=== PATIENT | male | born 1950 | race Caucasian/White ===

== ENCOUNTER 2018-03-28 14:45 | Inpatient (IN) | payer MEDICARE ==
[2018-03-28] MEDS ORDERED: ACETAMINOPHEN 500 MG TAB PO ONE (15:11)
--- NOTE | 2018-03-28 15:19 | RAD ---
EXAM DESCRIPTION: Chest,1 View CLINICAL HISTORY: cough, dyspnea COMPARISON: Chest radiograph dated March 28, 2013 FINDINGS: Single upright portable AP view of the chest. Mild calcific atherosclerosis and tortuosity noted of the thoracic aorta. Cardiomediastinal silhouette and pulmonary vascularity are within normal limits. Hyperinflated lung volume, compatible with COPD. Subtle hazy opacities in the bilateral lower lung zones, right greater than left, compatible with atelectasis versus early pulmonary infiltrate. No significant pleural effusion. No pneumothorax. ACDF construct is present. IMPRESSION: 1. Subtle hazy opacities in the bilateral lower lung zones, right greater than left, compatible with atelectasis versus early pulmonary infiltrate. Please correlate clinically. 2. COPD. 3. Other findings as above. Electronically signed by: Brian Estrada MD 03/28/2018 3:18 PM CDT
--- NOTE | 2018-03-28 15:38 | ED.PDOC ---
History of Present Illness - General Chief Complaint: Respiratory Problem Stated Complaint: cough,fever Time Seen by Provider: 03/28/18 15:18 Source: patient Exam Limitations: no limitations - History of Present Illness Initial Comments: THIS PATIENT COMES TO THE ED BY AMBULANCE WITH A FOUR DAY HISTORY OF FEVER AND A COUGH. HE HAS A HX OF COPD Timing/Duration: constant, other - FOUR DAYS Severity: moderate Possible Cause: occasional episodes Improving Factors: nothing Worsening Factors: movement Associated Symptoms: cough, fever, wheezing Respiratory Risk Factors: no cause identified Allergies/Adverse Reactions: Allergies NO KNOWN ALLERGY Allergy (Unverified 03/28/13 11:31) Home Medications: Ambulatory Orders Amlodipine Besylate [Amlodipine Besylate] 5 mg PO DAILY 03/28/18 Lovastatin [Lovastatin] 10 mg PO DAILY 03/28/18 Review of Systems - Review of Systems Constitutional: States: chills, fever, weakness EENTM: States: no symptoms reported Respiratory: States: cough, short of breath, wheezing Cardiology: States: no symptoms reported Gastrointestinal/Abdominal: States: no symptoms reported Genitourinary: States: no symptoms reported Musculoskeletal: States: no symptoms reported Skin: States: no symptoms reported Neurological: States: no symptoms reported Endocrine: States: no symptoms reported Hematologic/Lymphatic: States: no symptoms reported All other Systems: Reviewed and Negative, No Change from Baseline Past Medical History (General) - Patient Medical History Hx Stroke: No Hx of COPD: Yes Hx Congestive Heart Failure: No Hx Hypertension: Yes Hx Diabetes: No - Vaccination History Hx Influenza Vaccination: Yes Hx Pneumococcal Vaccination: Yes - Social History Hx Tobacco Use: No Family Medical History - Family History Father Family History: Unknown Living Status: Unknown Physical Exam - Physical Exam General Appearance: Alert, Restless, Well Developed, Well Groomed Eyes, Ears, Nose, Throat Exam: PERRL/EOMI, normal ENT inspection, TMs normal, pharynx normal Neck: non-tender, full range of motion, supple, normal inspection Respiratory: chest non-tender, rhonchi, wheezing Cardiovascular/Chest: no edema, no gallop, tachycardia Peripheral Pulses: radial,right: 2+, radial,left: 2+ Gastrointestinal/Abdominal: normal bowel sounds, non tender, soft, no organomegaly, no pulsatile mass Rectal Exam: deferred Extremity: normal range of motion Neurologic: no motor/sensory deficits, alert, normal mood/affect, oriented x 3 Skin Exam: normal color, warm/dry Lymphatic: no adenopathy Progress - Results/Orders Results/Orders: THE CXR IS CONSISTENT WITH BIBASILAR PNEUMONIA, MORE ON THE RIGHT. CBC IS PENDING: CMP GLUCOSE 172 LACTATE I.3 Departure - Departure Clinical Impression: Pneumonia Qualifiers: Pneumonia type: due to unspecified organism Laterality: bilateral Lung location : lower lobe of lung Qualified Code(s): J18.9 - Pneumonia, unspecified organism Time of Disposition: 16:06 Disposition: Admit Patient Referrals: Moustapha Sanchez MD [Primary Care Provider] - 1-2 Weeks Home Medications: Ambulatory Orders Amlodipine Besylate [Amlodipine Besylate] 5 mg PO DAILY 03/28/18 Lovastatin [Lovastatin] 10 mg PO DAILY 03/28/18 Decision To Admit - Decistion To Admit Decision to Admit Date: 03/28/18 Decision to Admit Time: 16:05 - CASE DISCUSSED WITH AVELINO HARRIS RN
[2018-03-28] MEDS ORDERED: cefTRIAXone SODIUM 1 GM in SODIUM CHL 0.9% 50ML MIN-BAG+ 50 ML IVPB ONE (16:07)
[2018-03-28] MEDS ORDERED: AZITHROMYCIN IV 500 MG in SODIUM CHLORIDE 0.9% 250ML 250 ML IVPB ONE (16:07)
[2018-03-28] MEDS ORDERED: SODIUM CHL 0.9% 50ML MIN-BAG+ 50 ML IVPB ONE (16:12)
[2018-03-28] MEDS ORDERED: cefTRIAXone SODIUM 1 GM VIAL ONE (16:12)
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
[2018-03-28] MEDS ORDERED: SODIUM CHLORIDE 0.9% 250ML 250 ML ONE (16:56)
[2018-03-28] MEDS ORDERED: AZITHROMYCIN IV 500 MG VIAL IVPB ONE (16:56)
[2018-03-28] MEDS ORDERED: SODIUM CHLORIDE 0.9% (FLUSH) 10 ML SYG IV PRN (17:41)
[2018-03-28] MEDS ORDERED: ALBUTEROL SULFATE 2.5 MG/3 ML VIAL NEB PRN (17:41)
[2018-03-28] MEDS ORDERED: PANTOPRAZOLE SODIUM IV 40 MG VIAL IV SCH (18:00)
[2018-03-28] MEDS ORDERED: ENOXAPARIN SODIUM 40 MG/0.4 ML SYG SUBCU SCH (18:00)
[2018-03-28] MEDS ORDERED: LEVALBUTEROL NEBS 1.25 MG/3 ML VIAL NEB PRN (18:56)
[2018-03-28] MEDS ORDERED: KCL 20MEQ/0.45% NS 1,000 ML IVS ONE (19:30)
[2018-03-28] MEDS ORDERED: IPRATROPIUM/ALBUTEROL 3 ML VIAL INH SCH (20:00)
[2018-03-28] MEDS: IV SET AND CAP CHANGE INJ INJ SCH (20:47)
[2018-03-28] MEDS: PREGABALIN 75 MG CAP PO SCH (20:49)
[2018-03-28] MEDS: guaiFENesin ER TAB 600 MG TAB PO SCH (20:49)
[2018-03-28] MEDS: SODIUM CHLORIDE 0.9% (FLUSH) 10 ML SYG IV SCH (20:49)
[2018-03-28] MEDS ORDERED: LOVASTATIN 10 MG PO SCH (21:00)
[2018-03-28] MEDS: LEVALBUTEROL NEBS 1.25 MG/3 ML VIAL NEB SCH (21:15)
--- NOTE | 2018-03-29 06:54 | RAD ---
EXAM DESCRIPTION: Chest,2 Views CLINICAL HISTORY: Pneumonia COMPARISON: 03/28/2018 FINDINGS: Frontal and lateral views of the chest. The cardiomediastinal silhouette has normal size and contour. Patchy bibasilar opacities are stable. Hyperinflation suggesting obstructive lung disease. No pleural effusion or pneumothorax. Degenerative change of the spine. Leads overlie the chest. Upper abdominal soft tissues are unremarkable. IMPRESSION: 1. Patchy bibasilar opacities are stable. This could be related to atelectasis or developing bronchopneumonia. Electronically signed by: Sergio Amor 03/29/2018 6:52 AM CDT
[2018-03-29] MEDS: LEVALBUTEROL NEBS 1.25 MG/3 ML VIAL NEB SCH ×4 (07:10→20:13)
[2018-03-29] MEDS: VALSARTAN 80 MG TAB PO SCH (08:46)
[2018-03-29] MEDS: SODIUM CHLORIDE 0.9% (FLUSH) 10 ML SYG IV SCH ×2 (08:47→20:56)
[2018-03-29] MEDS: amLODIPine BESYLATE 5 MG TAB PO SCH (08:47)
[2018-03-29] MEDS: guaiFENesin ER TAB 600 MG TAB PO SCH ×2 (08:47→20:56)
[2018-03-29] MEDS: PREGABALIN 75 MG CAP PO SCH ×2 (08:47→20:56)
[2018-03-29] MEDS: hydroCHLOROthiazide 12.5 MG CAP PO SCH (08:47)
[2018-03-29] MEDS ORDERED: NON-FORMULARY MEDICATION 1 EA MIS (Valsartan-Hydrochlorothiazide [Valsartan/Hydrochlorothi PO SCH (09:00)
[2018-03-29] MEDS: BUDESONIDE/FORMOTEROL 160/4.5 60 PUFF/6 GM INH INH SCH ×2 (12:06→20:13)
[2018-03-29] MEDS ORDERED: SODIUM CHLORIDE 0.9% 250ML 250 ML ONE (15:20)
[2018-03-29] MEDS ORDERED: cefTRIAXone SODIUM 1 GM VIAL ONE (15:21)
[2018-03-29] MEDS ORDERED: SODIUM CHL 0.9% 50ML MIN-BAG+ 50 ML IVPB ONE (15:21)
[2018-03-29] MEDS ORDERED: AZITHROMYCIN IV 500 MG VIAL IVPB ONE (15:22)
[2018-03-29] MEDS: cefTRIAXone SODIUM 1 GM in SODIUM CHL 0.9% 50ML MIN-BAG+ 50 ML IVPB SCH (15:24)
[2018-03-29] MEDS: AZITHROMYCIN IV 500 MG in SODIUM CHLORIDE 0.9% 250ML 250 ML IVPB SCH (16:05)
[2018-03-29] MEDS: PANTOPRAZOLE SODIUM TAB 40 MG PO SCH (16:07)
[2018-03-29] MEDS: methylPREDNISolone SODIUM SUC 125 MG/2 ML VIAL IV SCH (18:35)
[2018-03-29] MEDS ORDERED: MAGNESIUM SULFATE PREMIX 2GM 2 GM in PREMIX BAG 1 BAG IVPB ONE (19:17)
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
[2018-03-29] MEDS ORDERED: MAGNESIUM SULFATE PREMIX 2GM 50 ML IVPB ONE (19:51)
[2018-03-29] MEDS: ENOXAPARIN SODIUM 40 MG/0.4 ML SYG SUBCU SCH (20:56)
[2018-03-29] MEDS: PRAVASTATIN SODIUM 20 MG TAB PO SCH (20:56)
[2018-03-30] MEDS: methylPREDNISolone SODIUM SUC 125 MG/2 ML VIAL IV SCH ×4 (00:11→17:39)
[2018-03-30] MEDS: PANTOPRAZOLE SODIUM TAB 40 MG PO SCH (06:12)
[2018-03-30] MEDS: LEVALBUTEROL NEBS 1.25 MG/3 ML VIAL NEB SCH ×4 (07:33→20:50)
[2018-03-30] MEDS: BUDESONIDE/FORMOTEROL 160/4.5 60 PUFF/6 GM INH INH SCH ×2 (07:33→20:55)
[2018-03-30] MEDS: guaiFENesin ER TAB 600 MG TAB PO SCH ×2 (08:19→20:55)
[2018-03-30] MEDS: hydroCHLOROthiazide 12.5 MG CAP PO SCH (08:19)
[2018-03-30] MEDS: PREGABALIN 75 MG CAP PO SCH ×2 (08:19→20:55)
[2018-03-30] MEDS: VALSARTAN 80 MG TAB PO SCH (08:19)
[2018-03-30] MEDS: SODIUM CHLORIDE 0.9% (FLUSH) 10 ML SYG IV SCH ×2 (08:20→20:56)
[2018-03-30] MEDS: amLODIPine BESYLATE 5 MG TAB PO SCH (08:20)
[2018-03-30] MEDS ORDERED: MAGNESIUM SULFATE PREMIX 2GM 2 GM in PREMIX BAG 1 BAG IVPB ONE (14:27)
[2018-03-30] MEDS ORDERED: MAGNESIUM SULFATE PREMIX 2GM 50 ML IVPB ONE (15:41)
[2018-03-30] MEDS ORDERED: SODIUM CHLORIDE 0.9% 250ML 250 ML ONE (16:05)
[2018-03-30] MEDS ORDERED: cefTRIAXone SODIUM 1 GM VIAL ONE (16:05)
[2018-03-30] MEDS ORDERED: SODIUM CHL 0.9% 50ML MIN-BAG+ 50 ML IVPB ONE (16:05)
[2018-03-30] MEDS ORDERED: AZITHROMYCIN IV 500 MG VIAL IVPB ONE (16:05)
[2018-03-30] MEDS: cefTRIAXone SODIUM 1 GM in SODIUM CHL 0.9% 50ML MIN-BAG+ 50 ML IVPB SCH (16:14)
[2018-03-30] MEDS: KCL 20MEQ/D5 1/2NS 1,000 ML IVS PRN (17:26)
[2018-03-30] MEDS: AZITHROMYCIN IV 500 MG in SODIUM CHLORIDE 0.9% 250ML 250 ML IVPB SCH (17:27)
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
[2018-03-30] MEDS: ENOXAPARIN SODIUM 40 MG/0.4 ML SYG SUBCU SCH (20:55)
[2018-03-30] MEDS: PRAVASTATIN SODIUM 20 MG TAB PO SCH (20:56)
[2018-03-31] MEDS: methylPREDNISolone SODIUM SUC 125 MG/2 ML VIAL IV SCH ×2 (00:18→05:36)
[2018-03-31] MEDS: PANTOPRAZOLE SODIUM TAB 40 MG PO SCH (06:11)
[2018-03-31] MEDS: BUDESONIDE/FORMOTEROL 160/4.5 60 PUFF/6 GM INH INH SCH ×4 (08:01→21:00)
[2018-03-31] MEDS: KCL 20MEQ/D5 1/2NS 1,000 ML IVS PRN (08:13)
[2018-03-31] MEDS: hydroCHLOROthiazide 12.5 MG CAP PO SCH (08:52)
[2018-03-31] MEDS: PREGABALIN 75 MG CAP PO SCH ×2 (08:52→20:37)
[2018-03-31] MEDS: guaiFENesin ER TAB 600 MG TAB PO SCH ×2 (08:52→20:37)
[2018-03-31] MEDS: VALSARTAN 80 MG TAB PO SCH (08:52)
[2018-03-31] MEDS: amLODIPine BESYLATE 5 MG TAB PO SCH (08:52)
[2018-03-31] MEDS: SODIUM CHLORIDE 0.9% (FLUSH) 10 ML SYG IV SCH ×2 (08:52→20:38)
--- NOTE | 2018-03-31 10:10 | RAD ---
EXAM: Two view chest. INDICATION: Pneumonia. COMPARISON: Chest x-ray: 03/29/2018. FINDINGS: The lungs are emphysematous. There are bibasilar interstitial opacities, likely representing atelectasis. There is no focal consolidation. The heart is normal in size. There is no pneumothorax or pleural effusion. Thoracic spondylosis is noted IMPRESSION: Emphysematous appearing lungs Electronically signed by: Joshua Saul MD 03/31/2018 10:09 AM CDT Workstation: [id number]
[2018-03-31] MEDS: LEVALBUTEROL NEBS 1.25 MG/3 ML VIAL NEB SCH ×4 (10:22→20:35)
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
[2018-03-31] MEDS: methylPREDNISolone SODIUM SUC 40 MG/ML VIAL IV SCH ×2 (14:21→17:33)
[2018-03-31] MEDS ORDERED: cefTRIAXone SODIUM 1 GM VIAL ONE (14:49)
[2018-03-31] MEDS ORDERED: SODIUM CHL 0.9% 50ML MIN-BAG+ 50 ML IVPB ONE (14:49)
[2018-03-31] MEDS: cefTRIAXone SODIUM 1 GM in SODIUM CHL 0.9% 50ML MIN-BAG+ 50 ML IVPB SCH (14:53)
[2018-03-31] MEDS ORDERED: SODIUM CHLORIDE 0.9% 250ML 250 ML ONE (15:47)
[2018-03-31] MEDS ORDERED: AZITHROMYCIN IV 500 MG VIAL IVPB ONE (15:47)
[2018-03-31] MEDS: AZITHROMYCIN IV 500 MG in SODIUM CHLORIDE 0.9% 250ML 250 ML IVPB SCH (15:53)
[2018-03-31] MEDS: IV SET AND CAP CHANGE INJ INJ SCH (17:27)
[2018-03-31] MEDS: ENOXAPARIN SODIUM 40 MG/0.4 ML SYG SUBCU SCH (20:35)
[2018-03-31] MEDS: PRAVASTATIN SODIUM 20 MG TAB PO SCH (20:36)
[2018-04-01] MEDS: PANTOPRAZOLE SODIUM TAB 40 MG PO SCH (05:57)
[2018-04-01] MEDS: guaiFENesin ER TAB 600 MG TAB PO SCH (08:38)
[2018-04-01] MEDS: VALSARTAN 80 MG TAB PO SCH (08:38)
[2018-04-01] MEDS: hydroCHLOROthiazide 12.5 MG CAP PO SCH (08:38)
[2018-04-01] MEDS: amLODIPine BESYLATE 5 MG TAB PO SCH (08:38)
[2018-04-01] MEDS: PREGABALIN 75 MG CAP PO SCH (08:38)
[2018-04-01] MEDS: SODIUM CHLORIDE 0.9% (FLUSH) 10 ML SYG IV SCH (08:39)
[2018-04-01] MEDS: BUDESONIDE/FORMOTEROL 160/4.5 60 PUFF/6 GM INH INH SCH (08:56)
[2018-04-01] MEDS: LEVALBUTEROL NEBS 1.25 MG/3 ML VIAL NEB SCH (08:56)
[2018-04-01] MEDS ORDERED: predniSONE 20 MG TAB PO SCH (09:00)
[2018-04-01 10:11] VITALS: BP 128/56; TEMP 96.6; O2SAT 95
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
[2018-04-01] MEDS ORDERED: AZITHROMYCIN 250 MG TAB PO SCH (15:00)
== END 2018-04-01 10:36 | disposition home or self-care (01) | DRG 871 ==
LOC: ER 14:45 → MS 16:18
PROVIDERS: ADMIT Nurse Practitioner Acute Care; ATTEND Nurse Practitioner
DX: A41.9 Sepsis, unspecified organism (principal); J18.9 Pneumonia, unspecified organism; J44.0 Chronic obstructive pulmonary disease with (acute) lower respiratory infection; J44.1 Chronic obstructive pulmonary disease with (acute) exacerbation; I10 Essential (primary) hypertension; N28.9 Disorder of kidney and ureter, unspecified; R73.9 Hyperglycemia, unspecified; R74.8 Abnormal levels of other serum enzymes; Z79.899 Other long term (current) drug therapy; E66.9 Obesity, unspecified; R09.02 Hypoxemia; T59.891S Toxic effect of other specified gases, fumes and vapors, accidental (unintentional), sequela; Z68.37 Body mass index [BMI] 37.0-37.9, adult

== ENCOUNTER → 2018-05-24 | Outpatient (CLI) | payer OTHER ==
--- NOTE | 2018-05-24 15:15 | US ---
EXAM DESCRIPTION: Abdomen,Limited CLINICAL HISTORY: ABDOMINAL DISTENSION COMPARISON: None Available. TECHNIQUE: Right upper quadrant ultrasound FINDINGS: Pancreas: Visualized portions of the pancreas are unremarkable. Bowel gas obscures some areas. Aorta/inferior vena cava: No aortic aneurysm. Normal inferior vena cava. Liver: The liver is homogeneous in texture with normal echogenicity of the hepatic parenchyma. No focal liver lesion or intrahepatic bile duct dilatation. No liver surface irregularity. Normal appearance of the portal vein and hepatic veins. Right lobe of the liver measures 19.2 cm which is increased. Gallbladder: Numerous shadowing stones are seen in the gallbladder. Gallbladder wall thickness measures 2.4 mm. Sonographic Jade sign is recorded as negative. Gallbladder does not appear overdistended. Common bile duct: Normal caliber measuring 6.0 mm. Right kidney: Renal length is 9.4 cm. Mildly increased renal cortical echogenicity. Correlate with renal function studies. Cortical thickness is mildly decreased at the upper and lower poles. No hydronephrosis is seen. No renal mass or shadowing calculus. Small cyst at the lower pole of the right kidney measures 1 cm. Small parapelvic cyst in the right kidney measures 1.3 cm. Question small calcification in the right kidney 4 mm. IMPRESSION: Gallstones without other changes to suggest acute cholecystitis. Elongated liver suggesting mild hepatomegaly. Electronically signed by: Fito Ritchie MD 05/24/2018 3:14 PM CDT
== END ==
LOC: RAD 13:11
PROVIDERS: ATTEND Nurse Practitioner Family
DX: R14.0 Abdominal distension (gaseous) (principal); K80.20 Calculus of gallbladder without cholecystitis without obstruction

== ENCOUNTER 2019-01-23 15:37 | Inpatient (IN) | payer OTHER ==
[2019-01-23] MEDS ORDERED: IPRATROPIUM/ALBUTEROL 3 ML VIAL NEB ONE (15:48)
--- NOTE | 2019-01-23 16:12 | RAD ---
EXAM DESCRIPTION: Chest,1 View CLINICAL HISTORY: 69 years Male, cough, sob COMPARISON: Radiographs of the chest dated 03/31/2018. TECHNIQUE: AP radiograph of the chest was obtained. FINDINGS: Trachea is midline.The cardiomediastinal silhouette is normal in size. The pulmonary vasculature is within normal limits. Airspace opacities are identified in the bilateral lower lobes.No evidence of pleural effusions. IMPRESSION: Airspace opacities in the bilateral lower lobes could represent atelectasis and/or pneumonia. Electronically signed by: Aaliyah Olsen MD 01/23/2019 4:08 PM [facility]
[2019-01-23] MEDS ORDERED: SODIUM CHLORIDE 0.9% 1000ML 1,000 ML IVS ONE ×3 (16:16→22:52)
[2019-01-23] MEDS ORDERED: AZITHROMYCIN IV 500 MG in SODIUM CHLORIDE 0.9% 250ML 250 ML IVPB ONE (16:42)
[2019-01-23] MEDS ORDERED: cefTRIAXone SODIUM 1 GM in SODIUM CHL 0.9% 50ML MIN-BAG+ 50 ML IVPB ONE (16:42)
[2019-01-23] MEDS ORDERED: methylPREDNISolone SODIUM SUC 125 MG/2 ML VIAL IV ONE (16:42)
[2019-01-23] MEDS ORDERED: SODIUM CHLORIDE 0.9% 250ML 250 ML ONE ×2 (17:04→21:30)
[2019-01-23] MEDS ORDERED: cefTRIAXone SODIUM 1 GM VIAL ONE (17:04)
[2019-01-23] MEDS ORDERED: AZITHROMYCIN IV 500 MG VIAL IVPB ONE (17:04)
[2019-01-23] MEDS ORDERED: SODIUM CHL 0.9% 50ML MIN-BAG+ 50 ML IVPB ONE ×2 (17:04→21:31)
--- NOTE | 2019-01-23 17:22 | ED.PDOC ---
History of Present Illness - General Chief Complaint: Respiratory Problem Stated Complaint: difficulty breathing Time Seen by Provider: 01/23/19 15:38 Source: patient Exam Limitations: no limitations - History of Present Illness Initial Comments: the patient is a 69-year-old male presenting to emergency room secondary to altered mental status and shortness of breath. The patient has had 5 days of symptoms of shortness of breath as well as a productive sputum. He had been a little less mobile than normal secondary to pain in his right hip. Fevers have been reported by his . He is now having worse oxygen 24 7. Initial vitals here show oxygen saturation down around 82% on 2-1/2 L. Initial blood pressure is in the 70s over 40s. The patient has confused. He is pale. He has coarse rhonchi bilaterally and a few scattered rales. Fair air movement however. Timing/Duration: 1 week Severity: severe Improving Factors: nothing Worsening Factors: nothing Associated Symptoms: cough, fever/chills, loss of appetite, malaise, shortness of breath, weakness Allergies/Adverse Reactions: Allergies NO KNOWN ALLERGY Allergy (Verified 01/23/19 16:16) Home Medications: Ambulatory Orders Amlodipine Besylate 5 mg PO DAILY 03/28/18 Budesonide-Formoterol Fumarate [Symbicort 160-4.5 Mcg/Act] 1 aer IN BID 03/28/18 Valsartan-Hydrochlorothiazide [Valsartan/Hydrochlorothia 160-12.5 mg] 1 tab PO DAILY 03/28/18 Lovastatin 20 mg PO BEDTIME 01/23/19 Pregabalin [Lyrica] 75 mg PO DAILY 01/23/19 Tramadol HCl 50 mg PO Q6H PRN 01/23/19 Umeclidinium [place] [Incruse Ellipta] 62.5 mcg IN DAILY 01/23/19 Review of Systems - Review of Systems Constitutional: States: no symptoms reported, chills, diaphoresis, fever, malaise, weakness EENTM: States: no symptoms reported, nose congestion Respiratory: States: cough, short of breath, wheezing Cardiology: States: no symptoms reported Gastrointestinal/Abdominal: States: no symptoms reported Genitourinary: States: no symptoms reported Musculoskeletal: States: see HPI - multiple chronic pain issues Skin: States: no symptoms reported Neurological: States: other - significant confusion Endocrine: States: no symptoms reported All other Systems: No Change from Baseline Past Medical History (General) - Patient Medical History Hx Seizures: No Hx Stroke: Yes - states had stroke several years in [facility] Hx of COPD: Yes Hx Congestive Heart Failure: Yes Hx Hypertension: Yes Hx Diabetes: No Hx MRSA: No Surgical History: other - Vaccination History Hx Influenza Vaccination: No Hx Pneumococcal Vaccination: Yes - Social History Hx Tobacco Use: No Hx Emotional Abuse: No Family Medical History - Family History Father Family History: Unknown Living Status: Unknown Physical Exam - Physical Exam General Appearance: Frail, Obvious distress, Ill Appearing, Other - drowsy pale and very ill. Clammy. Eye Exam: bilateral normal Ears, Nose, Throat: hearing grossly normal, normal pharynx, nasal congestion Neck: full range of motion, supple Respiratory: respiratory distress - mild, accessory muscle use, rales, rhonchi, wheezing Cardiovascular/Chest: normal peripheral pulses, regular rate, rhythm, no edema Peripheral Pulses: radial,right: 2+, radial,left: 2+, dorsalis pedis,right: 2+, dorsalis pedis,left: 2+ Gastrointestinal/Abdominal: non tender, soft Rectal Exam: deferred Back Exam: other - chronic pain present Extremity: no pedal edema, no calf tenderness, normal capillary refill, other - he does have chronic pain from his previous injuries in his extremities Neurologic: senior care manager II-XII nml as tested, other - the patient is initially significantly disoriented. This improves with correction of blood pressure and hypoxia No new focal neurological deficits. Skin Exam: normal color Comments: Vital Signs - 24 hr 01/23/19 01/23/19 01/23/19 15:58 16:33 16:37 Temperature 98.4 F Pulse Rate 99 H Pulse Rate [ 24 L 99 H left brachial] Respiratory 24 24 18 Rate Blood Pressure 71/47 86/53 [left brachial] O2 Sat by Pulse 82 L 93 L 93 L Oximetry 01/23/19 01/23/19 16:38 17:00 Temperature Pulse Rate Pulse Rate [ 100 H left brachial] Respiratory 24 20 Rate Blood Pressure 109/71 [left brachial] O2 Sat by Pulse 98 Oximetry Progress - Progress Progress: 01/23/19 17:25 the patient is a 69-year-old male presenting with septic shock due to pneumonia. The patient has received a liter of IV fluids with significant improvement in his blood pressure. He has been started on Rocephin and azithromycin as well as received a dose of Solu-Medrol. He has received a breathing treatment. He is on higher flow oxygen. He is now oxygenating significantly better. He is now alert and oriented. His hypoxic encephalopathy has corrected with correction of his oxygenation and hypotension. Blood cultures have been performed and sputum cultures are being collected. Admit for care for above. Continue telemetry monitoring. Critical care time spent in management of above acute processes as well as for arranging for plan of care and discussion with family is 35 minutes. - Results/Orders Results/Orders: chest x-ray shows bilateral lowerlobe infiltrates. No effusions. Mild cardiomegaly. EKG shows sinus tachycardia 101 bpm. Normal QT interval. Normal R-wave progression. No ST segment or T-wave changes concerning for immediate ischemia. Laboratory Tests 01/23/19 01/23/19 01/23/19 16:00 16:00 16:00 WBC 10.6 RBC 4.72 Hgb 14.1 Hct 42.8 MCV 90.6 MCH 29.8 MCHC 32.9 L RDW 13.5 Plt Count 529 H MPV 8.3 Absolute Neuts (auto) 7.50 H Absolute Lymphs (auto) 1.70 Absolute Monos (auto) 1.20 H Absolute Eos (auto) 0.10 Absolute Basos (auto) 0.10 Neutrophils % 70.8 Lymphocytes % 15.9 L Monocytes % 11.0 H Eosinophils % 1.1 Basophils % 1.2 Sodium 134 L Potassium 3.8 Chloride 97 L Carbon Dioxide 22 Anion Gap 18.8 H BUN 65 H Creatinine 3.22 H BUN/Creatinine Ratio 20.2 H Random Glucose 125 H Serum Osmolality 288.4 Lactic Acid 2.2 Calcium 8.8 Magnesium 2.5 Total Bilirubin 1.2 H AST 44 H ALT 33 Alkaline Phosphatase 152 H Creatine Kinase 156 CK-MB (CK-2) 1.6 CK-MB (CK-2) % Not Reportable Troponin I < 0.02 B-Natriuretic Peptide 15.2 Serum Total Protein 7.8 Albumin 3.0 L Globulin 4.8 H Albumin/Globulin Ratio 0.6 L Departure - Departure Clinical Impression: Septic shock, Hypoxic encephalopathy Bilateral pneumonia Qualifiers: Pneumonia type: due to unspecified organism Lung location: unspecified part of lung Qualified Code(s): J18.9 - Pneumonia, unspecified organism Disposition: Admit Patient Departure Forms: ED Discharge - Pt. Copy, Patient Portal Self Enrollment Referrals: Katie Ying NP [Primary Care Provider] - 1-2 Weeks Home Medications: Ambulatory Orders Amlodipine Besylate 5 mg PO DAILY 03/28/18 Budesonide-Formoterol Fumarate [Symbicort 160-4.5 Mcg/Act] 1 aer IN BID 03/28/18 Valsartan-Hydrochlorothiazide [Valsartan/Hydrochlorothia 160-12.5 mg] 1 tab PO DAILY 03/28/18 Lovastatin 20 mg PO BEDTIME 01/23/19 Pregabalin [Lyrica] 75 mg PO DAILY 01/23/19 Tramadol HCl 50 mg PO Q6H PRN 01/23/19 Umeclidinium [place] [Incruse Ellipta] 62.5 mcg IN DAILY 01/23/19 Decision To Admit - Decistion To Admit Decision to Admit Reason: Medical Nature Decision to Admit Date: 01/23/19 Decision to Admit Time: 17:28
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
[2019-01-23] MEDS ORDERED: ONDANSETRON INJ 4 MG/2 ML VIAL IV PRN (19:03)
[2019-01-23] MEDS ORDERED: SODIUM CHLORIDE 0.9% (FLUSH) 10 ML SYG IV PRN (19:03)
[2019-01-23] MEDS ORDERED: ACETAMINOPHEN 325 MG TAB PO PRN (19:03)
[2019-01-23] MEDS: IV SET AND CAP CHANGE INJ INJ SCH (19:39)
[2019-01-23] MEDS ORDERED: traMADol HCL 50 MG TAB PO PRN (19:43)
[2019-01-23] MEDS ORDERED: ALBUTEROL SULFATE 2.5 MG/3 ML VIAL NEB PRN (19:43)
[2019-01-23] MEDS: IPRATROPIUM/ALBUTEROL 3 ML VIAL NEB SCH (20:42)
[2019-01-23] MEDS ORDERED: BUDESONIDE NEBS 0.5 MG/2 ML VIAL NEB ONE (20:57)
[2019-01-23] MEDS ORDERED: SIMVASTATIN 10 MG TAB PO SCH (21:00)
[2019-01-23] MEDS ORDERED: NON-FORMULARY MEDICATION 1 EA MIS (Budesonide-Formoterol Fumarate [Symbicort 160-4.5 Mcg/A IN SCH (21:00)
[2019-01-23] MEDS ORDERED: VANCOMYCIN PER PHARMACY INJ SCH (21:00)
[2019-01-23] MEDS: BUDESONIDE NEBS 0.5 MG/2 ML VIAL NEB SCH (21:03)
[2019-01-23] MEDS ORDERED: VANCOMYCIN HCL INJ 500 MG VIAL ONE (21:30)
[2019-01-23] MEDS ORDERED: OSELTAMIVIR 75 MG CAP ONE (21:31)
[2019-01-23] MEDS ORDERED: VANCOMYCIN HCL INJ 1,000 MG VIAL IVPB ONE (21:31)
[2019-01-23] MEDS ORDERED: CEFEPIME 2 GM VIAL ONE (21:31)
[2019-01-23] MEDS: CEFEPIME 2 GM in SODIUM CHL 0.9% 50ML MIN-BAG+ 50 ML IVPB SCH (21:38)
[2019-01-23] MEDS: OSELTAMIVIR PHOSPHATE 6 MG/ML BOTTLE PO SCH (21:56)
[2019-01-23] MEDS: ENOXAPARIN SODIUM 40 MG/0.4 ML SYG SUBCU SCH (21:56)
[2019-01-23] MEDS: VANCOMYCIN HCL INJ 1,500 MG in SODIUM CHLORIDE 0.9% 250ML 250 ML IVPB SCH (22:12)
[2019-01-24] MEDS: methylPREDNISolone SODIUM SUC 125 MG/2 ML VIAL IV SCH ×2 (00:08→06:51)
[2019-01-24] MEDS: KCL 20 MEQ/NS 1,000 ML IVS PRN ×2 (00:14→06:50)
[2019-01-24] MEDS ORDERED: SODIUM CHL 0.9% 50ML MIN-BAG+ 50 ML IVPB ONE ×2 (06:31→19:42)
[2019-01-24] MEDS ORDERED: SODIUM CHLORIDE 0.9% 250ML 250 ML ONE (06:31)
[2019-01-24] MEDS ORDERED: VANCOMYCIN HCL INJ 500 MG VIAL ONE (06:31)
[2019-01-24] MEDS ORDERED: CEFEPIME 2 GM VIAL ONE ×2 (06:32→19:43)
[2019-01-24] MEDS ORDERED: VANCOMYCIN HCL INJ 1,000 MG VIAL IVPB ONE ×2 (06:33→19:43)
[2019-01-24] MEDS: PANTOPRAZOLE SODIUM IV 40 MG VIAL IV SCH (06:51)
[2019-01-24] MEDS ORDERED: BUDESONIDE NEBS 0.25 MG/2 ML INH ONE (07:54)
[2019-01-24] MEDS ORDERED: BUDESONIDE NEBS 0.5 MG/2 ML VIAL NEB ONE (07:55)
--- NOTE | 2019-01-24 08:12 | RAD ---
EXAM DESCRIPTION: Chest,2 Views CLINICAL HISTORY: 69 years Male, Pneumonia COMPARISON: 01/23/2019 TECHNIQUE: Frontal and lateral views of the chest. IMPRESSION: Cardiac silhouette is stably enlarged. Improved but residual moderate right and mild left basilar consolidations. No pleural effusion or pneumothorax. Thoracic spondylosis. No acute compression deformity. Electronically signed by: Ric Beverly MD 01/24/2019 8:09 AM SUPERVISOR LUMP ROOM
[2019-01-24] MEDS: IPRATROPIUM/ALBUTEROL 3 ML VIAL NEB SCH ×4 (08:16→20:00)
[2019-01-24] MEDS: PREGABALIN 75 MG CAP PO SCH (08:24)
[2019-01-24] MEDS: CEFEPIME 2 GM in SODIUM CHL 0.9% 50ML MIN-BAG+ 50 ML IVPB SCH ×2 (08:24→20:47)
[2019-01-24] MEDS: BIFIDOBACTERIUM INFANTIS 4 MG CAP PO SCH (08:24)
[2019-01-24] MEDS ORDERED: NON-FORMULARY MEDICATION 1 EA MIS (Umeclidinium Bromide [Incruse Ellipta] 62.5 MCG) IN SCH (09:00)
[2019-01-24] MEDS ORDERED: hydroCHLOROthiazide 12.5 MG CAP PO SCH (09:00)
[2019-01-24] MEDS ORDERED: NON-FORMULARY MEDICATION 1 EA MIS (Valsartan-Hydrochlorothiazide [Valsartan/Hydrochlorothi PO SCH (09:00)
[2019-01-24] MEDS ORDERED: VALSARTAN 80 MG TAB PO SCH (09:00)
[2019-01-24] MEDS ORDERED: AZITHROMYCIN IV 500 MG in SODIUM CHLORIDE 0.9% 250ML 250 ML IVPB SCH (09:00)
[2019-01-24] MEDS ORDERED: cefTRIAXone SODIUM 1 GM in SODIUM CHL 0.9% 50ML MIN-BAG+ 50 ML IVPB SCH (09:00)
[2019-01-24] MEDS ORDERED: amLODIPine BESYLATE 5 MG TAB PO SCH (09:00)
[2019-01-24] MEDS: OSELTAMIVIR PHOSPHATE 6 MG/ML BOTTLE PO SCH ×2 (09:27→20:11)
[2019-01-24] MEDS: BUDESONIDE NEBS 0.5 MG/2 ML VIAL NEB SCH (12:10)
[2019-01-24] MEDS ORDERED: BUDESONIDE/FORMOTEROL 160/4.5 60 PUFF/6 GM INH INH ONE (12:52)
[2019-01-24] MEDS: BUDESONIDE NEBS 0.25 MG/2 ML INH NEB SCH ×2 (13:00→20:00)
[2019-01-24] MEDS: VANCOMYCIN HCL INJ 1,500 MG in SODIUM CHLORIDE 0.9% 250ML 250 ML IVPB SCH (13:04)
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
[2019-01-24] MEDS ORDERED: SODIUM CHLORIDE 0.9% 500ML 500 ML ONE (19:43)
[2019-01-24] MEDS: NON-FORMULARY MEDICATION 1 EA MIS (Budesonide-Formoterol Fumarate [Symbicort 160-4.5 Mcg/A IN SCH (20:00)
[2019-01-24] MEDS: ENOXAPARIN SODIUM 40 MG/0.4 ML SYG SUBCU SCH (20:10)
[2019-01-24] MEDS: VANCOMYCIN HCL INJ 1,750 MG in SODIUM CHLORIDE 0.9% 500ML 500 ML IVPB SCH (21:18)
[2019-01-25] MEDS: KCL 20 MEQ/NS 1,000 ML IVS PRN (01:08)
[2019-01-25] MEDS: PANTOPRAZOLE SODIUM IV 40 MG VIAL IV SCH (06:02)
--- NOTE | 2019-01-25 06:09 | RAD ---
EXAM DESCRIPTION: Chest,1 View CLINICAL HISTORY: 69 years Male Pneumonia COMPARISON: Two-view chest 01/24/2019 TECHNIQUE: A single frontal projection of the chest is obtained. FINDINGS: Heart: Allowing for magnification factors related to AP portable technique and large body habitus , the heart is at the upper limits of normal in size. Vasculature: The aorta is unremarkable with the exception of mild tortuosity. The pulmonary vascularity is normal. Mediastinum: Unremarkable otherwise. No evidence of mass or adenopathy. Lungs: Patchy alveolar opacification has progressed slightly in the right lower lung and right midlung consistent with atelectasis and/or pneumonia. The remainder of the lungs remain clear. Pleural spaces: Allowing for slightly less optimal depth of inspiration, there has been no change in the small right pleural effusion. There is no significant left pleural fluid or evidence of pneumothoraces Osseous structures: There is no evidence of acute fracture, osseous destruction or osteoblastic lesions. There are diffuse enthesopathic changes including a rolling pattern of ossification in the thoracic spine consistent with diffuse idiopathic skeletal hyperostosis (DISH). Tubes and catheters: None. Upper abdomen: No acute findings. Chest wall: Unremarkable. IMPRESSION: Slight progression of atelectasis and or pneumonia in the right mid and lower lung is largely unchanged right pleural effusion. Remainder of findings as described above. Electronically signed by: Jinny Covington MD 01/25/2019 6:06 AM LAND SURVEYOR ASSISTANT
[2019-01-25] MEDS ORDERED: SODIUM CHL 0.9% 50ML MIN-BAG+ 50 ML IVPB ONE ×2 (07:17→19:20)
[2019-01-25] MEDS ORDERED: CEFEPIME 2 GM VIAL ONE ×2 (07:18→19:21)
[2019-01-25] MEDS: PREGABALIN 75 MG CAP PO SCH (07:57)
[2019-01-25] MEDS: VALSARTAN 80 MG TAB PO SCH (07:57)
[2019-01-25] MEDS: BIFIDOBACTERIUM INFANTIS 4 MG CAP PO SCH (07:57)
[2019-01-25] MEDS: OSELTAMIVIR PHOSPHATE 6 MG/ML BOTTLE PO SCH ×2 (07:58→20:26)
[2019-01-25] MEDS: amLODIPine BESYLATE 5 MG TAB PO SCH (07:58)
[2019-01-25] MEDS: hydroCHLOROthiazide 12.5 MG CAP PO SCH (07:58)
[2019-01-25] MEDS: SODIUM CHLORIDE 0.9% (FLUSH) 10 ML SYG IV SCH ×2 (08:00→20:28)
[2019-01-25] MEDS: BUDESONIDE NEBS 0.25 MG/2 ML INH NEB SCH ×2 (08:17→20:07)
[2019-01-25] MEDS: IPRATROPIUM/ALBUTEROL 3 ML VIAL NEB SCH ×4 (08:17→20:07)
[2019-01-25] MEDS: NON-FORMULARY MEDICATION 1 EA MIS (Budesonide-Formoterol Fumarate [Symbicort 160-4.5 Mcg/A IN SCH ×2 (08:18→20:07)
[2019-01-25] MEDS: NON-FORMULARY MEDICATION 1 EA MIS (Umeclidinium Bromide [Incruse Ellipta] 62.5 MCG) IN SCH (08:19)
[2019-01-25] MEDS: CEFEPIME 2 GM in SODIUM CHL 0.9% 50ML MIN-BAG+ 50 ML IVPB SCH ×2 (09:33→20:25)
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
[2019-01-25] MEDS ORDERED: SODIUM CHLORIDE 0.9% 500ML 500 ML ONE (19:21)
[2019-01-25] MEDS ORDERED: VANCOMYCIN HCL INJ 1,000 MG VIAL IVPB ONE (19:21)
[2019-01-25] MEDS: ENOXAPARIN SODIUM 40 MG/0.4 ML SYG SUBCU SCH (20:25)
[2019-01-25] MEDS: VANCOMYCIN HCL INJ 1,750 MG in SODIUM CHLORIDE 0.9% 500ML 500 ML IVPB SCH (20:58)
[2019-01-26] MEDS: PANTOPRAZOLE SODIUM IV 40 MG VIAL IV SCH (06:19)
--- NOTE | 2019-01-26 06:20 | RAD ---
EXAM DESCRIPTION: Chest,1 View CLINICAL HISTORY: 69 years Male Pneumonia COMPARISON: Portable chest 01/25/2019 TECHNIQUE: A single frontal projection of the chest is obtained. FINDINGS: Heart: Allowing for magnification factors related to AP portable technique and large body habitus , the heart is mildly prominent with a probable prominent pericardial fat right costophrenic angle Vasculature: There is mild tortuosity of the aorta. The pulmonary vascularity is normal. Mediastinum: Unremarkable otherwise. No evidence of mass or adenopathy. Lungs: Hyperinflation and hyperlucency of the upper halves of the thoraces is consistent with bullous changes of centrilobular emphysema with crowding of the bronchovascular markings inferiorly. Alveolar opacification persists in the right mid to lower lung, similar to the previous study allowing for slightly better penetration and consistent with pneumonia and/or atelectasis versus edema. Pleural spaces: There is blunting of the right costophrenic angle consistent with scarring or a small pleural effusion. There is no left pleural fluid, and there are no pneumothoraces. Osseous structures: The osseous structures show no discernible acute fractures or areas of osseous destruction or blastic change, although assessment of the spine is limited by underpenetration. Tubes and catheters: None. Upper abdomen: No acute findings. Chest wall: Unremarkable. IMPRESSION: No significant change in atelectasis and or pneumonia versus edema in the right lower lung is underlying centrilobular emphysema. Suspect mild fluid overload/cardiac decompensation setting of centrilobular emphysema. Remainder of findings as described above. Electronically signed by: Jinny Covington MD 01/26/2019 6:18 AM LEAD DATA ENTRY OPERATOR
[2019-01-26] MEDS ORDERED: SODIUM CHL 0.9% 50ML MIN-BAG+ 50 ML IVPB ONE ×2 (06:44→19:02)
[2019-01-26] MEDS ORDERED: CEFEPIME 2 GM VIAL ONE ×2 (06:45→19:02)
[2019-01-26] MEDS: BIFIDOBACTERIUM INFANTIS 4 MG CAP PO SCH (08:37)
[2019-01-26] MEDS: SODIUM CHLORIDE 0.9% (FLUSH) 10 ML SYG IV SCH ×2 (08:37→21:16)
[2019-01-26] MEDS: amLODIPine BESYLATE 5 MG TAB PO SCH (08:38)
[2019-01-26] MEDS: hydroCHLOROthiazide 12.5 MG CAP PO SCH (08:38)
[2019-01-26] MEDS: OSELTAMIVIR PHOSPHATE 6 MG/ML BOTTLE PO SCH ×2 (08:38→21:18)
[2019-01-26] MEDS: PREGABALIN 75 MG CAP PO SCH (08:38)
[2019-01-26] MEDS: VALSARTAN 80 MG TAB PO SCH (08:38)
[2019-01-26] MEDS: BUDESONIDE NEBS 0.25 MG/2 ML INH NEB SCH ×2 (08:41→20:05)
[2019-01-26] MEDS: IPRATROPIUM/ALBUTEROL 3 ML VIAL NEB SCH ×4 (08:41→20:05)
[2019-01-26] MEDS: NON-FORMULARY MEDICATION 1 EA MIS (Umeclidinium Bromide [Incruse Ellipta] 62.5 MCG) IN SCH (08:41)
[2019-01-26] MEDS: NON-FORMULARY MEDICATION 1 EA MIS (Budesonide-Formoterol Fumarate [Symbicort 160-4.5 Mcg/A IN SCH ×2 (08:42→20:05)
[2019-01-26] MEDS: CEFEPIME 2 GM in SODIUM CHL 0.9% 50ML MIN-BAG+ 50 ML IVPB SCH ×2 (09:28→21:18)
[2019-01-26] MEDS ORDERED: SODIUM CHLORIDE 0.9% 500ML 0 ML ONE (19:02)
[2019-01-26] MEDS ORDERED: VANCOMYCIN HCL INJ 1,000 MG VIAL IVPB ONE (19:03)
--- NOTE | 2019-01-26 20:29 | PN ---
DATE: 01/26/19 SUPERVISING PHYSICIAN: German Man MD SUBJECTIVE: The patient this morning is sitting on the edge of the bed. Appears to be in good spirits. He notes that he still has a significant cough but is mentation is back to baseline from admission. Still has some shortness of breath and requires home O2 but feels like he is returning close to baseline. Denied any fevers, chest pains or palpitations. OBJECTIVE: VITAL SIGNS: Temperature 97.9, pulse 102, blood pressure 135/78, respirations 20, satting 93% on nasal cannula at rest. I's and O's show a negative balance of 410 with 3440 in, 3850 out. Weight is 94.7 kg. GENERAL: The patient is alert, appears to be comfortable and in no obvious distress. CHEST: Lung sounds remain diminished with a continued crackle and rale heard on the left upper lobe. The bases continue to be diminished. HEART: Regular rate and rhythm. ABDOMEN: Obese but non-tender with positive bowel sounds. NEUROLOGIC: He is alert and oriented times three. EXTREMITIES: No edema. LABORATORY: No repeat laboratory to report. Will plan to do laboratory in the morning. RADIOLOGY: A repeat chest x-ray today per radiology interpretation shows no significant change in atelectasis and/or pneumonia versus edema in the right lower lung is underlying centrilobular emphysema. Suspect mild fluid overload and cardiac decompensation setting of centrilobular emphysema. ASSESSMENT: 1. 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 2. Septic shock secondary to #1, resolved with fluid resuscitation. 3. Acute renal failure, likely prerenal azotemia from severe dehydration with the patient's baseline creatinine levels around 1.3. 4. Electrolyte imbalance to include hyponatremia, likely medication induced with the patient on hydrochlorothiazide with levels returning to baseline with fluids. 5. Metabolic acidosis with elevated anion gap, likely due to underlying dehydration with normal lactic acid, resolved with treatment. 6. History of hypertension. PLAN: With continue with current antibiotic coverage with vancomycin and Cefepime today for an additional 24 hours. Given his severe degree of emphysema and lung disease he will benefit for an additional 24 hours of aggressive pulmonary hygiene and repeat chest x-ray along with labs to reassure that he is returning to baseline levels. Will hopefully be able to discharge tomorrow. He will continue current treatment plan. Until he can transition to outpatient management will continue to monitor and treat as necessary. #[id number] MTDD
[2019-01-26] MEDS: ENOXAPARIN SODIUM 40 MG/0.4 ML SYG SUBCU SCH (21:16)
[2019-01-26] MEDS: IV SET AND CAP CHANGE INJ INJ SCH (21:19)
[2019-01-26] MEDS: VANCOMYCIN HCL INJ 1,750 MG in SODIUM CHLORIDE 0.9% 500ML 500 ML IVPB SCH (22:52)
[2019-01-26 23:54] VITALS: O2SAT 96
[2019-01-27] MEDS: PANTOPRAZOLE SODIUM IV 40 MG VIAL IV SCH (06:02)
[2019-01-27] MEDS ORDERED: SODIUM CHL 0.9% 50ML MIN-BAG+ 50 ML IVPB ONE (06:55)
[2019-01-27] MEDS ORDERED: CEFEPIME 2 GM VIAL ONE (06:56)
[2019-01-27] MEDS: IPRATROPIUM/ALBUTEROL 3 ML VIAL NEB SCH (07:10)
[2019-01-27] MEDS: NON-FORMULARY MEDICATION 1 EA MIS (Budesonide-Formoterol Fumarate [Symbicort 160-4.5 Mcg/A IN SCH (07:10)
[2019-01-27] MEDS: BUDESONIDE NEBS 0.25 MG/2 ML INH NEB SCH (07:10)
[2019-01-27] MEDS: NON-FORMULARY MEDICATION 1 EA MIS (Umeclidinium Bromide [Incruse Ellipta] 62.5 MCG) IN SCH (07:10)
[2019-01-27] MEDS: OSELTAMIVIR PHOSPHATE 6 MG/ML BOTTLE PO SCH (08:01)
[2019-01-27] MEDS: PREGABALIN 75 MG CAP PO SCH (08:02)
[2019-01-27] MEDS: VALSARTAN 80 MG TAB PO SCH (08:02)
[2019-01-27] MEDS: amLODIPine BESYLATE 5 MG TAB PO SCH (08:02)
[2019-01-27] MEDS: hydroCHLOROthiazide 12.5 MG CAP PO SCH (08:02)
[2019-01-27] MEDS: BIFIDOBACTERIUM INFANTIS 4 MG CAP PO SCH (08:02)
[2019-01-27] MEDS: SODIUM CHLORIDE 0.9% (FLUSH) 10 ML SYG IV SCH (08:06)
[2019-01-27] MEDS: CEFEPIME 2 GM in SODIUM CHL 0.9% 50ML MIN-BAG+ 50 ML IVPB SCH (09:47)
--- NOTE | 2019-01-27 10:08 | RAD ---
EXAM DESCRIPTION: Chest,2 Views CLINICAL HISTORY: pneumonia COMPARISON: January 26, 2019 TECHNIQUE: PA/lateral FINDINGS: Two views of the chest shows the left lung remaining essentially clear with slightly crowded markings at the left lung base. There is patchy infiltrative changes in the mid and lower lung field on the right that appear slightly improved from previous day's study. This may be related to the departmental technique. Residual right basilar infiltrate is suspected. Heart size is upper limits of normal with tortuous aortic arch and descending aorta. The vascularity is normal. IMPRESSION: Improved inspiration with residual patchy infiltrate mid and lower right lung field without significant pleural effusion, slightly improved from previous day's study. Electronically signed by: Hitesh Fraser MD 01/27/2019 10:05 AM FRUIT CULLER
[2019-01-27 10:18] VITALS: BP 114/72; TEMP 97.8
[2019-01-27] MEDS ORDERED: VANCOMYCIN HCL INJ 1,750 MG in SODIUM CHLORIDE 0.9% 500ML 500 ML IVPB SCH (21:00)
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
== END 2019-01-27 12:04 | disposition home or self-care (01) | DRG 871 ==
LOC: ER 15:37 → MS 17:41
PROVIDERS: ADMIT Nurse Practitioner Family; ATTEND Nurse Practitioner Family
DX: A41.9 Sepsis, unspecified organism (principal); J18.9 Pneumonia, unspecified organism; J44.0 Chronic obstructive pulmonary disease with (acute) lower respiratory infection; J44.1 Chronic obstructive pulmonary disease with (acute) exacerbation; R65.21 Severe sepsis with septic shock; E87.1 Hypo-osmolality and hyponatremia; E87.2 Acidosis; N17.9 Acute kidney failure, unspecified; E86.0 Dehydration; J84.10 Pulmonary fibrosis, unspecified; I11.0 Hypertensive heart disease with heart failure; R74.8 Abnormal levels of other serum enzymes; R09.02 Hypoxemia; G62.9 Polyneuropathy, unspecified; E78.5 Hyperlipidemia, unspecified; I50.9 Heart failure, unspecified; Z86.73 Personal history of transient ischemic attack (TIA), and cerebral infarction without residual deficits; Z79.51 Long term (current) use of inhaled steroids; Z79.891 Long term (current) use of opiate analgesic; Z79.899 Other long term (current) drug therapy

== ENCOUNTER → 2019-02-06 | Outpatient (CLI) | payer OTHER ==
--- NOTE | 2019-02-06 16:21 | MRI ---
EXAM DESCRIPTION: MRI right hip CLINICAL HISTORY: Right hip pain. Previous surgery approximately 7 years ago COMPARISON: None. TECHNIQUE: Multiplanar, multisequence MR images of the right hip FINDINGS: Previous fracture fixation right proximal femur with intramedullary juno and dynamic hip screw. No acute marrow abnormality. Normal marrow signal in the femoral head Physiologic hip joint fluid. Blunting of the anterior superior labrum. No acute labral detachment identified No full-thickness chondrosis or chronic osteochondral lesion. Normal marrow signal in the acetabulum Normal tendons and muscles around the right hip. Chronic tendinosis/interstitial partial tear of the gluteus minimus and gluteus medius on the left. Mild chronic common hamstring tendinosis without tear No pelvic soft tissue mass lesion adenopathy or free fluid. Central prostate hypertrophy with trabeculated urinary bladder from chronic low-grade bladder outlet obstruction. Sigmoid diverticulosis without diverticulitis. IMPRESSION: No acute bony abnormality of the right hip. Degenerative blunting of the anterior superior labrum Electronically signed by: Htiesh Mike MD 02/06/2019 4:17 PM CDT
== END ==
LOC: MRI 07:51
PROVIDERS: ATTEND Nurse Practitioner Family
DX: M25.551 Pain in right hip (principal)